=== PATIENT | male | born 1935 | race Asian ===

== ENCOUNTER 2017-03-18 10:25 | Outpatient (CLI) | payer OTHER | END 2017-03-18 19:04 | disposition home or self-care (01) | LOC: RAD 10:25 | DX: R04.2 Hemoptysis (principal) ==

== ENCOUNTER 2017-06-06 07:35 | Outpatient (CLI) | payer OTHER | END 2017-06-06 19:17 | disposition home or self-care (01) | LOC: CT 07:35 | DX: R07.89 Other chest pain (principal) | CPT/HCPCS: 81000; Q9963 ==

== ENCOUNTER → 2018-06-08 | Outpatient (CLI) | payer OTHER ==
[2018-06-08 10:03] LABS: PLATELET COUNT 256 K/uL (142-355)
[2018-06-08 10:21] LABS: POTASSIUM 4.1 mmol/L (3.6-5.2)
== END ==
LOC: LABW 09:42
PROVIDERS: Internal Medicine
DX: D64.9 Anemia, unspecified (principal); Z79.899 Other long term (current) drug therapy; E78.49 Other hyperlipidemia
CPT/HCPCS: 36415; 80053; 80061; 81000; 84439; 84443; 85027

== ENCOUNTER 2020-02-09 09:34 | Emergency (ER) | payer OTHER ==
[~2020-02-09] VITALS: Ht 167.6 cm; Wt 70.8 kg
[2020-02-09 09:44] VITALS: BP 148/88; TEMP 97.1
[2020-02-09 10:32] LABS: PLATELET COUNT 300 K/uL (142-355)
[2020-02-09 10:36] LABS: POTASSIUM 4.1 mmol/L (3.6-5.2)
== END 2020-02-09 10:58 | disposition home or self-care (01) ==
LOC: ED 09:34
PROVIDERS: Family Medicine
DX: R31.9 Hematuria, unspecified (principal); R33.8 Other retention of urine
CPT/HCPCS: 80053; 81000; 85027; 99283

== ENCOUNTER 2020-02-18 11:47 | Emergency (ER) | payer OTHER ==
[~2020-02-18] VITALS: Ht 167.6 cm; Wt 70.8 kg
[2020-02-18 12:03] VITALS: TEMP 98
[2020-02-18 12:31] LABS: PLATELET COUNT 290 K/uL (142-355)
[2020-02-18 13:24] VITALS: BP 122/74
== END 2020-02-18 13:25 | disposition home or self-care (01) ==
LOC: ED 11:47
PROVIDERS: Hospitalist
PROC: 0T9B70Z Drainage of Bladder with Drainage Device, Via Natural or Artificial Opening (ICD-10-PCS; principal; 2020-02-18)
DX: N40.1 Benign prostatic hyperplasia with lower urinary tract symptoms (principal); R33.8 Other retention of urine
CPT/HCPCS: 36415; 51702; 80048; 81000; 85027; 96372; 99283; J1885

== ENCOUNTER 2020-05-21 09:34 | Emergency (ER) | payer OTHER ==
[~2020-05-21] VITALS: Ht 167.6 cm; Wt 70.8 kg
[2020-05-21 09:49] VITALS: TEMP 97.2
[2020-05-21 12:51] VITALS: BP 152/78
== END 2020-05-21 12:53 | disposition home or self-care (01) ==
LOC: ED 09:34
PROC: 0T2BX0Z Change Drainage Device in Bladder, External Approach (ICD-10-PCS; principal; 2020-05-21)
DX: T83.031A Leakage of indwelling urethral catheter, initial encounter (principal); N39.0 Urinary tract infection, site not specified
CPT/HCPCS: 51702; 81000; 87077; 87086; 87088; 87186; 99283

== ENCOUNTER 2020-06-08 11:35 | Emergency (ER) | payer OTHER ==
[~2020-06-08] VITALS: Ht 167.6 cm; Wt 70.8 kg
[2020-06-08 11:49] VITALS: TEMP 97.6
[2020-06-08 13:08] VITALS: BP 124/65
== END 2020-06-08 13:09 | disposition home or self-care (01) ==
LOC: ED 11:35
DX: M10.9 Gout, unspecified (principal); N30.80 Other cystitis without hematuria; T83.031A Leakage of indwelling urethral catheter, initial encounter
CPT/HCPCS: 81000; 96372; 99282; J1885; J2930

== ENCOUNTER 2020-06-15 00:33 | Emergency (ER) | payer OTHER ==
[~2020-06-15] VITALS: Ht 167.6 cm; Wt 70.8 kg
[2020-06-15 01:25] VITALS: BP 138/72; TEMP 98.6
== END 2020-06-15 01:25 | disposition home or self-care (01) ==
LOC: ED 00:33
DX: T83.031A Leakage of indwelling urethral catheter, initial encounter (principal); N40.0 Benign prostatic hyperplasia without lower urinary tract symptoms
CPT/HCPCS: 99281

== ENCOUNTER 2020-06-26 11:41 | Emergency (ER) | payer OTHER ==
[~2020-06-26] VITALS: Ht 167.6 cm; Wt 70.8 kg
[2020-06-26 13:00] VITALS: BP 141/89; TEMP 97.8
== END 2020-06-26 13:00 | disposition home or self-care (01) ==
LOC: ED 11:41
DX: S16.1XXA Strain of muscle, fascia and tendon at neck level, initial encounter (principal); X58.XXXA Exposure to other specified factors, initial encounter; Y93.89 Activity, other specified; Y92.89 Other specified places as the place of occurrence of the external cause; R51.9 Headache, unspecified
CPT/HCPCS: 99283

== ENCOUNTER 2020-07-12 09:49 | Emergency (ER) | payer OTHER ==
[~2020-07-12] VITALS: Ht 167.6 cm; Wt 70.8 kg
[2020-07-12 09:53] VITALS: TEMP 97.3
[2020-07-12 12:10] VITALS: BP 121/75
== END 2020-07-12 12:10 | disposition home or self-care (01) ==
LOC: ED 09:49
DX: T83.031A Leakage of indwelling urethral catheter, initial encounter (principal)
CPT/HCPCS: 99282

== ENCOUNTER 2020-11-06 19:27 | Emergency (ER) | payer OTHER ==
[~2020-11-06] VITALS: Ht 167.6 cm; Wt 70.3 kg
[~2020-11-06 19:27] MED LIST: TAMS0.4C PO
[2020-11-06 23:09] VITALS: BP 131/66; TEMP 98.4
== END 2020-11-06 23:15 | disposition home or self-care (01) ==
LOC: ED 19:27
PROC: 0T2BX0Z Change Drainage Device in Bladder, External Approach (ICD-10-PCS; principal; 2020-11-06)
DX: T83.091A Other mechanical complication of indwelling urethral catheter, initial encounter (principal)
CPT/HCPCS: 51702; 99282; 99283

== ENCOUNTER 2020-12-09 12:07 | Emergency (ER) | payer OTHER ==
[~2020-12-09] VITALS: Ht 167.6 cm; Wt 75.3 kg
[2020-12-09 13:38] VITALS: BP 142/66; TEMP 98.9
== END 2020-12-09 13:38 | disposition home or self-care (01) ==
LOC: ED 12:07
PROC: 0T9B70Z Drainage of Bladder with Drainage Device, Via Natural or Artificial Opening (ICD-10-PCS; principal; 2020-12-09)
DX: N40.1 Benign prostatic hyperplasia with lower urinary tract symptoms (principal); R39.11 Hesitancy of micturition; N39.0 Urinary tract infection, site not specified
CPT/HCPCS: 51702; 81000; 87077; 87086; 87088; 87186; 99283

== ENCOUNTER 2021-03-05 14:35 | Outpatient (CLI) | payer OTHER ==
[2021-03-05 15:11] LABS: PLATELET COUNT 253 K/uL (142-355)
[2021-03-05 15:26] LABS: POTASSIUM 3.8 mmol/L (3.6-5.2)
== END 2021-03-05 19:56 | disposition home or self-care (01) ==
LOC: LABW 14:35
PROVIDERS: ATTEND Internal Medicine Hematology & Oncology
DX: C61 Malignant neoplasm of prostate (principal); R97.20 Elevated prostate specific antigen [PSA]
CPT/HCPCS: 36415; 80053; 84153; 84402; 84403; 85027

== ENCOUNTER 2021-03-25 18:27 | Emergency (ER) | payer OTHER ==
[~2021-03-25] VITALS: Ht 167.6 cm; Wt 70.8 kg
[2021-03-25 19:25] VITALS: BP 146/71; TEMP 98.8
== END 2021-03-25 19:25 | disposition home or self-care (01) ==
LOC: ED 18:27
PROC: 0T2BX0Z Change Drainage Device in Bladder, External Approach (ICD-10-PCS; principal; 2021-03-25)
DX: T83.091A Other mechanical complication of indwelling urethral catheter, initial encounter (principal); X58.XXXA Exposure to other specified factors, initial encounter; Y84.6 Urinary catheterization as the cause of abnormal reaction of the patient, or of later complication, without mention of misadventure at the time of the procedure; Y92.89 Other specified places as the place of occurrence of the external cause
CPT/HCPCS: 51702; 99283

== ENCOUNTER 2021-10-15 14:13 | Emergency (ER) | payer OTHER ==
[~2021-10-15] VITALS: Ht 167.6 cm; Wt 70.8 kg
[2021-10-15 14:20] VITALS: TEMP 98
[2021-10-15 19:07] VITALS: BP 155/68
== END 2021-10-15 19:08 | disposition home or self-care (01) ==
LOC: ED 14:13
DX: Z48.03 Encounter for change or removal of drains (principal); Z85.46 Personal history of malignant neoplasm of prostate
CPT/HCPCS: 81002; 81015; 87086; 87088; 99283

== ENCOUNTER 2021-12-26 08:58 | Emergency (ER) | payer OTHER ==
[~2021-12-26] VITALS: Ht 167.6 cm; Wt 70.8 kg
[2021-12-26 09:00] VITALS: BP 153/82; TEMP 97.6
== END 2021-12-26 09:47 | disposition home or self-care (01) ==
LOC: ED 08:58
DX: N39.0 Urinary tract infection, site not specified (principal); T83.038A Leakage of other urinary catheter, initial encounter
CPT/HCPCS: 81000; 87077; 87086; 87088; 87186; 99282

== ENCOUNTER 2022-02-02 21:25 | Emergency (ER) | payer OTHER ==
[~2022-02-02] VITALS: Ht 167.6 cm; Wt 73.5 kg
[2022-02-02 21:30] VITALS: TEMP 98.9
[2022-02-02 22:34] LABS: PLATELET COUNT 298 K/uL (142-355)
[2022-02-02 22:35] LABS: POTASSIUM 3.7 mmol/L (3.6-5.2)
[2022-02-03 01:26] VITALS: BP 134/72
== END 2022-02-03 01:26 | disposition home or self-care (01) ==
LOC: ED 21:25
PROVIDERS: Emergency Medicine
DX: R30.0 Dysuria (principal); N39.0 Urinary tract infection, site not specified; Z97.8 Presence of other specified devices; C61 Malignant neoplasm of prostate
CPT/HCPCS: 36415; 80048; 81000; 85027; 96365; 99284; J1956

== ENCOUNTER 2022-07-03 09:09 | Emergency (ER) | payer OTHER ==
[~2022-07-03] VITALS: Ht 167.6 cm; Wt 71.7 kg
[2022-07-03 09:14] VITALS: BP 160/87; TEMP 98.4
== END 2022-07-03 11:05 | disposition home or self-care (01) ==
LOC: ED 09:09
DX: S00.531A Contusion of lip, initial encounter (principal); W19.XXXA Unspecified fall, initial encounter; R22.0 Localized swelling, mass and lump, head
CPT/HCPCS: 99283

== ENCOUNTER 2022-07-23 10:50 | Emergency (ER) | payer OTHER ==
[~2022-07-23] VITALS: Ht 167.6 cm; Wt 70.8 kg
[2022-07-23 12:00] VITALS: BP 106/70; TEMP 98.8
== END 2022-07-23 12:00 | disposition home or self-care (01) ==
LOC: ED 10:50
DX: M60.9 Myositis, unspecified (principal)
CPT/HCPCS: 96374; 99284; J1885

== ENCOUNTER 2022-07-28 13:51 | Emergency (ER) | payer OTHER ==
[~2022-07-28] VITALS: Ht 167.6 cm; Wt 70.8 kg
[2022-07-28 14:49] LABS: PLATELET COUNT 320 K/uL (142-355)
[2022-07-28 15:08] VITALS: BP 149/77; TEMP 97.4
== END 2022-07-28 15:08 | disposition home or self-care (01) ==
LOC: ED 13:51
PROVIDERS: Family Medicine
DX: N30.00 Acute cystitis without hematuria (principal); C61 Malignant neoplasm of prostate; N31.2 Flaccid neuropathic bladder, not elsewhere classified; I10 Essential (primary) hypertension; M10.9 Gout, unspecified
CPT/HCPCS: 36415; 81000; 85027; 87077; 87086; 87088; 87186; 99282

== ENCOUNTER 2022-07-31 12:16 | Emergency (ER) | payer OTHER ==
[~2022-07-31] VITALS: Ht 167.6 cm; Wt 76.2 kg
[2022-07-31 12:16] VITALS: BP 116/73; TEMP 98.3
== END 2022-07-31 15:25 | disposition home or self-care (01) ==
LOC: ED 12:16
DX: M54.9 Dorsalgia, unspecified (principal)
CPT/HCPCS: 96374; 96375; 99284; J1100; J1885

== ENCOUNTER 2022-08-02 08:01 | Emergency (ER) | payer OTHER ==
[~2022-08-02] VITALS: Ht 167.6 cm; Wt 70.8 kg
[2022-08-02 10:02] VITALS: BP 109/55; TEMP 97.8
== END 2022-08-02 10:03 | disposition home or self-care (01) ==
LOC: ED 08:01
DX: M54.32 Sciatica, left side (principal); M25.552 Pain in left hip
CPT/HCPCS: 99282